=== PATIENT | female | born 1990 | race Asian ===

== ENCOUNTER 2020-12-01 11:06 | Emergency (ER) | payer OTHER ==
[~2020-12-01] VITALS: Ht 167.6 cm; Wt 81.6 kg
== END 2020-12-01 13:13 | disposition home or self-care (01) ==
LOC: ER 11:06 → CPU-OBS 11:09 → ER 11:09
DX: L05.01 Pilonidal cyst with abscess (principal)

== ENCOUNTER 2021-04-25 20:28 | Emergency (ER) | payer OTHER ==
[~2021-04-25] VITALS: Ht 162.6 cm; Wt 93.9 kg
== END 2021-04-26 00:06 | disposition home or self-care (01) ==
LOC: ER 20:28
DX: U07.1 COVID-19 (principal); R09.81 Nasal congestion; Z20.822 Contact with and (suspected) exposure to COVID-19

== ENCOUNTER 2021-05-31 08:00 | Outpatient (CLI) | payer OTHER | END 2021-05-31 08:30 | disposition home or self-care (01) | LOC: PPH VACUNA 08:00 | PROVIDERS: ATTEND Emergency Medicine Pediatric Emergency Medicine | DX: Z23 Encounter for immunization (principal) ==

== ENCOUNTER 2022-06-05 08:25 | Emergency (ER) | payer OTHER ==
[~2022-06-05] VITALS: Ht 162.6 cm; Wt 93.0 kg
[2022-06-05] MEDS ORDERED: SKELAGESIC PO (13:09)
[2022-06-05] MEDS ORDERED: ALBUTEROL2.5 MG/3 M IH (13:15)
[2022-06-05] MEDS ORDERED: BENZONATATE200 M1 PO (13:15)
== END 2022-06-05 13:24 ==
LOC: ER 08:25
DX: J11.1 Influenza due to unidentified influenza virus with other respiratory manifestations (principal); Z88.6 Allergy status to analgesic agent; Z20.822 Contact with and (suspected) exposure to COVID-19